=== PATIENT | male | born 1980 | race Caucasian/White ===

== ENCOUNTER 2022-06-29 10:46 | Outpatient (CLI) | payer BC, SELFPAY | END 2022-06-29 10:47 | disposition home or self-care (01) | LOC: AMB 06-30 11:29 | PROVIDERS: Visit Provider Family Medicine | DX: R07.89 Other chest pain (principal) | CPT/HCPCS: A0425; A0427 ==

== ENCOUNTER 2022-06-29 11:13 | Emergency (ER) | payer BC, SELFPAY ==
[2022-06-29] VITALS (32 sets, daily range): BP systolic 101–150; BP diastolic 68–110; PULSE 55–78; RESP 14; TEMP 36.3–36.4; O2SAT 94–98; BMI 31.5
--- NOTE | 2022-06-29 11:36 | CRLHL7_ITS ---
For Patients: As a result of the Century Cures Act, medical imaging exams and procedure reports are released immediately into your electronic medical record. You may view this report before your referring provider. If you have questions, please contact your health care provider. INDICATION: CHEST PAIN TECHNIQUE: Chest 2 views COMPARISON: None FINDINGS: Cardiovascular and mediastinum: Heart size and vasculature are normal in caliber and appearance. Lungs and pleural spaces: Lungs are clear. No sign of infiltrate or mass. No sign of pleural effusion. No pneumothorax. Bones and soft tissues: No significant findings. IMPRESSION: No acute findings. Dictated by Barry Card MD @ 06/29/2022 12:05:01 PM (Electronically Signed)
[2022-06-29] MEDS: 0.9 % SODIUM CHLORIDE 1000 ml 1,000 ML IV (12:03)
[2022-06-29] MEDS: ONDANSETRON 2 MG/ML inj 4 MG IVP (12:03)
[2022-06-29 12:27] LABS: Basophils Absolute Auto 0.04 K/uL (0.00-0.30); Basophils Percent Auto 0.7 % (0.0-3.0); Eosinophils Absolute Auto 0.15 K/uL (0.00-0.50); Eosinophils Percent Auto 2.4 % (0.0-7.0); Hematocrit 44.3 % (37.0-53.0); Hemoglobin* 15.8 gm/dL (13.5-17.5); Immature Granulocytes Abs Auto 0.02 K/uL (0.00-0.30); Immature Granulocytes Pct Auto 0.3 %; Lymphocytes Absolute Auto 1.69 K/uL (0.90-2.90); Lymphocytes Percent Auto 27.6 % (20-44); Mean Corpuscular HGB Conc 36 gm/dL (32-36); Mean Corpuscular Hemoglobin 32 pg (26-34); Mean Corpuscular Volume 91 fL (80-100); Monocytes Percent Auto 11.3 % (0.0-11.0); Neutrophils Absolute Auto 3.54 K/uL (1.7-7.0); Neutrophils Percent Auto 57.7 % (42.0-72.0); Platelet Count* 226 K/uL (140-440); RDW Coefficient of Variation % 11.7 % (11.5-15.5); Red Blood Count 4.88 m/uL (4.30-5.90); White Blood Count* 6.13 K/uL (4.50-11.00)
[2022-06-29 12:31] LABS: Slide Review Reflex No
[2022-06-29 12:35] LABS: Chloride* 107 mmol/L (96-114); Potassium* 3.7 mmol/L (3.6-5.1); Sodium* 137 mmol/L (135-149)
[2022-06-29 12:38] LABS: Blood Urea Nitrogen* 21 mg/dL (5-24); Calcium* 9.5 mg/dL (8.4-10.6); Carbon Dioxide* 21 mmol/L (20-32); Creatinine* 0.7 mg/dL (0.5-1.5); Est. Creatinine Clearance* 134.36; Estimated Glomerular Filt Rate 119 ml/min; Glucose* 112 mg/dL (60-115)
[2022-06-29 12:48] LABS: NT Pro B Type NatriureticPept* < 20 pg/mL
[2022-06-29 12:49] LABS: Prothrombin Time 12.7 Seconds
[2022-06-29 12:50] LABS: Partial Thromboplastin Time* 31 Seconds (23-33)
[2022-06-29 12:59] LABS: PCR FLU A Negative PCR FLU A (Negative); PCR FLU B Negative PCR FLU B (Negative); PCR RSV Negative PCR RSV (Negative)
[2022-06-29 13:02] LABS: SARS PCR* Negative SARS-CoV-2 (Negative)
[2022-06-29 13:30] LABS: D Dimer Quantitative* < 0.27 ug/ml (0.00-0.50)
[2022-06-29] MEDS: GI COCKTAIL (VISC LIDO/ANTACID) 30 ML PO (13:33)
--- NOTE | 2022-06-29 13:42 | ED_ITS ---
HPI - Chest Pain General Date Seen: 06/29/22 Chief Complaint: Chest Pain Stated Complaint: Chest pain Time Seen by Provider: 06/29/22 11:22 Source: patient, family and EMS Mode of arrival: ambulatory Limitations: no limitations History of Present Illness HPI narrative: This pleasant 42-year-old gentleman was at work, when he started to feel unwell, felt like does have a bowel movement then walked out to the parking lot, there he developed discomfort in his epigastrium this spread to his chest, felt like he was going to pass out, and called the ambulance service. On the way to the hospital they gave him aspirin, 2 nitroglycerines for his discomfort, he reports that his discomfort went away, he feels so much better at the present time, no previous history of chest pain myocardial issues but does have a history of hypertension. Family history of heart issues also in family members at the age of 40. 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 MD complaint: chest pain Onset (ago): minute(s) Prior episodes: No Onset: during rest Pain location: substernal and epigastric Pain radiation: abdomen Relieving factors: nitroglycerin Exacerbating factors: nothing Associated symptoms: nausea, vomiting and sense of impending doom Treatment prior to arrival: aspirin and nitroglycerin Risk Factors Coronary artery disease risk factors: hypertension and family history of CAD before age 50 Thoracic aortic dissection risk factors: none Related Data Home Medications Medication Instructions Recorded Confirmed alprazolam 0.5 mg tablet (Xanax) 0.5 mg PO TID PRN 06/29/22 06/29/22 metoprolol tartrate 100 mg tablet 50 mg PO DAILY 06/29/22 06/29/22 Allergies Allergy/AdvReac Type Severity Reaction Status Date / Time penicillin G Allergy Unknown Verified 06/29/22 11:29 strawberries Allergy Unknown Uncoded 06/29/22 11:29 Review of Systems Status of ROS Reports: 10 or more systems reviewed and unremarkable except as noted in History and below PFSH PFSH Social History Smoking Status: Current every day smoker What tobacco products do you use: cigarettes How often do you have a drink containing alcohol: 2-3 times a week How many standard drinks containing alcohol do you have on a typical day: 1 or 2 How often do you have six or more drinks on one occasion: Never AUDIT-C Alcohol total score: 3 Non-prescribed substance use: denies use Exam Narrative Exam Narrative: Patient is speaking normally, no problem with slurring words, oriented x3. Head eyes ears nose and throat exam show equal pupils, no scleral icterus, extraocular muscles are normal, no facial droop, speech is normal, trachea normal and midline. Thyroid normal midline palpable not enlarged. Chest shows symmetrical rise bilaterally, normal auscultation with no wheezes, no increased work of breathing, no overt bruising or lesions seen, no tenderness is noted on auscultation. Heart sounds normal with no S3-S4 no murmurs clicks or gallops. Abdomen shows no obvious masses or hepatosplenomegaly, no organomegaly, bowel sounds are normal in all quadrants. No tenderness is noted also in all quadran ts. Upper and lower extremities show normal power, normal range of motion, pulses are normal, sensations normal, fine motor movements are normal, pelvis is stable to rocking. Cervical spine shows normal range of motion, and palpably not tender. Thoracic spine shows normal range of motion, and palpably not tender, lumbar spine shows no tenderness to palpation percussion and is otherwise normal range of motion. Skin shows no rashes, petechiae or eccymosis. Const Vital Signs, click to edit/add: Vital Signs - 24 hr 06/29/22 11:19 06/29/22 11:18 06/29/22 11:20 Temperature 97.3 F L Pulse Rate 73 78 Pulse Rate [Pulse Oximeter] 70 Respiratory Rate 14 Blood Pressure 113/86 Blood Pressure [Left Upper Arm] 113/86 Pulse Oximetry 96 97 96 Oxygen Delivery Method Room Air 06/29/22 11:30 06/29/22 11:32 06/29/22 11:47 Temperature Pulse Rate 68 71 64 Pulse Rate [Pulse Oximeter] Respiratory Rate Blood Pressure 119/82 Blood Pressure [Left Upper Arm] Pulse Oximetry 97 97 97 Oxygen Delivery Method 06/29/22 12:00 06/29/22 12:02 06/29/22 12:15 Temperature Pulse Rate 64 60 66 Pulse Rate [Pulse Oximeter] Respiratory Rate Blood Pressure 101/69 Blood Pressure [Left Upper Arm] Pulse Oximetry 94 97 96 Oxygen Delivery Method 06/29/22 12:16 06/29/22 12:30 06/29/22 12:32 Temperature Pulse Rate 64 66 67 Pulse Rate [Pulse Oximeter] Respiratory Rate Blood Pressure 120/75 115/73 Blood Pressure [Left Upper Arm] Pulse Oximetry 96 95 97 Oxygen Delivery Method 06/29/22 12:33 06/29/22 12:46 06/29/22 12:47 Temperature Pulse Rate 64 60 66 Pulse Rate [Pulse Oximeter] Respiratory Rate Blood Pressure 113/68 Blood Pressure [Left Upper Arm] Pulse Oximetry 98 95 97 Oxygen Delivery Method 06/29/22 13:00 06/29/22 13:02 06/29/22 13:15 Temperature Pulse Rate 64 67 58 L Pulse Rate [Pulse Oximeter] Respiratory Rate Blood Pressure 122/73 Blood Pressure [Left Upper Arm] Pulse Oximetry 95 96 97 Oxygen Delivery Method 06/29/22 13:16 06/29/22 13:17 06/29/22 13:30 Temperature Pulse Rate 59 L 61 61 Pulse Rate [Pulse Oximeter] Respiratory Rate Blood Pressure 125/76 Blood Pressure [Left Upper Arm] Pulse Oximetry 96 96 96 Oxygen Delivery Method 06/29/22 13:45 06/29/22 13:47 06/29/22 14:00 Temperature Pulse Rate 58 L 60 56 L Pulse Rate [Pulse Oximeter] Respiratory Rate Blood Pressure 118/75 Blood Pressure [Left Upper Arm] Pulse Oximetry 96 98 95 Oxygen Delivery Method 06/29/22 14:01 06/29/22 14:15 06/29/22 14:17 Temperature Pulse Rate 55 L 60 57 L Pulse Rate [Pulse Oximeter] Respiratory Rate Blood Pressure 121/73 132/88 Blood Pressure [Left Upper Arm] Pulse Oximetry 97 96 98 Oxygen Delivery Method 06/29/22 14:30 06/29/22 14:31 06/29/22 14:32 Temperature Pulse Rate 60 57 L 61 Pulse Rate [Pulse Oximeter] Respiratory Rate Blood Pressure 150/87 H Blood Pressure [Left Upper Arm] Pulse Oximetry 95 94 97 Oxygen Delivery Method 06/29/22 14:47 06/29/22 14:57 Temperature 97.6 F Pulse Rate Pulse Rate [Pulse Oximeter] Respiratory Rate Blood Pressure 138/110 H Blood Pressure [Left Upper Arm] Pulse Oximetry Oxygen Delivery Method Course Course Hospital Course: Patient is seen and assessed, ultrasound is done of his heart, with the indication of chest discomfort, four views are obtained and saved in record, no pericardial effusion, overall good function is noted, with the EP SS being normal. Sliding signs seen bilaterally being normal, on the lung windows. Overall good function, negative point of care ultrasound. Reevaluation(s) Reevaluation #1: Repeated troponins were negative EKG was shows no acute changes, patient did not have any pain, the GI cocktail work very well. I think at this point we can discharge him home I would suggest outpatient stress echo, and then follow-up with primary care, he has a appointment made in the next few weeks with primary care, and wanted to get a stress echo through our institution which I do not think is unreasonable. I think starting on Prilosec would also be helpful, and return here if any further issues worsening pain shortness of breath or other issues. Vital Signs Vital signs: Initial Vital Signs Pulse Rate 73 06/29/22 11:18 Pulse Oximetry 97 06/29/22 11:18 Vital Signs Pulse Rate 73 06/29/22 11:18 Pulse Oximetry 97 06/29/22 11:18 Temperature 97.6 F 06/29/22 14:57 Pulse Rate 61 06/29/22 14:32 Respiratory Rate 14 06/29/22 11:19 Blood Pressure 138/110 H 06/29/22 14:47 Pulse Oximetry 97 06/29/22 14:32 Oxygen Delivery Method 06/29/22 11:19 MDM - Chest Pain MDM Narrative Medical decision making narrative: During the evaluation of this patient I considered multiple differential diag nosis is. The life-threatening differential diagnosis include coronary disease/IA, pulmonary embolism, pneumothorax, pneumonia, and aortic dissection. Other differential diagnosis included but were not limited to pericarditis, myocarditis, chest wall pain, GERD, esophageal rupture, rib fracture contusion, pleurisy, as well as other etiologies. Medical Records Data Attestation: I reviewed the patient's medical records. Lab Data Attestation: I reviewed the patient's lab results. Labs: Lab Results 06/29/22 06/29/22 06/29/22 Range/Units 11:37 11:50 11:50 WBC 6.13 (4.50-11.00) K/uL RBC 4.88 (4.30-5.90) m/uL Hgb 15.8 (13.5-17.5) gm/dL Hct 44.3 (37.0-53.0) % MCV 91 (80-100) fL MCH 32 (26-34) pg MCHC 36 (32-36) gm/dL RDW Coeff of Mirtha 11.7 (11.5-15.5) % Plt Count 226 (140-440) K/uL Neut % (Auto) 57.7 (42.0-72.0) % Lymph % (Auto) 27.6 (20-44) % [place] % (Auto) 11.3 H (0.0-11.0) % Eos % (Auto) 2.4 (0.0-7.0) % Baso % (Auto) 0.7 (0.0-3.0) % Neut # (Auto) 3.54 (1.7-7.0) K/uL Lymph # (Auto) 1.69 (0.90-2.90) K/uL [place] # (Auto) 0.70 (0.00-0.90) K/UL Eos # (Auto) 0.15 (0.00-0.50) K/uL Baso # (Auto) 0.04 (0.00-0.30) K/uL INR (0.91-1.10) APTT (23-33) Seconds D-Dimer Quant (PE/DVT) < 0.27 (0.00-0.50) ug/ml Sodium (135-149) mmol/L Potassium (3.6-5.1) mmol/L Chloride (96-114) mmol/L Carbon Dioxide (20-32) mmol/L BUN (5-24) mg/dL Creatinine (0.5-1.5) mg/dL Estimated Creat Clear Estimated GFR ml/min Glucose (60-115) mg/dL Calcium (8.4-10.6) mg/dL NT-Pro-B Natriuret Pep pg/mL SARS-CoV-2 (PCR) (Negative) Influenza Type A (PCR) (Negative) Influenza Type B (PCR) (Negative) RSV (PCR) (Negative) POC Troponin I 0.00 L (0.01-0.04) ng/ml 06/29/22 06/29/22 06/29/22 Range/Units 11:50 11:50 11:50 WBC (4.50-11.00) K/uL RBC (4.30-5.90) m/uL Hgb (13.5-17.5) gm/dL Hct (37.0-53.0) % MCV (80-100) fL MCH (26-34) pg MCHC (32-36) gm/dL RDW Coeff of Mirtha (11.5-15.5) % Plt Count (140-440) K/uL Neut % (Auto) (42.0-72.0) % Lymph % (Auto) (20-44) % [place] % (Auto) (0.0-11.0) % Eos % (Auto) (0.0-7.0) % Baso % (Auto) (0.0-3.0) % Neut # (Auto) (1.7-7.0) K/uL Lymph # (Auto) (0.90-2.90) K/uL [place] # (Auto) (0.00-0.90) K/UL Eos # (Auto) (0.00-0.50) K/uL Baso # (Auto) (0.00-0.30) K/uL INR 0.90 L (0.91-1.10) APTT 31 (23-33) Seconds D-Dimer Quant (PE/DVT) (0.00-0.50) ug/ml Sodium 137 (135-149) mmol/L Potassium 3.7 (3.6-5.1) mmol/L Chloride 107 (96-114) mmol/L Carbon Dioxide 21 (20-32) mmol/L BUN 21 (5-24) mg/dL Creatinine 0.7 (0.5-1.5) mg/dL Estimated Creat Clear 134.36 Estimated GFR 119 ml/min Glucose 112 (60-115) mg/dL Calcium 9.5 (8.4-10.6) mg/dL NT-Pro-B Natriuret Pep pg/mL SARS-CoV-2 (PCR) Negative SARS-CoV-2 (Negative) Influenza Type A (PCR) Negative PCR FLU A (Negative) Influenza Type B (PCR) Negative PCR FLU B (Negative) RSV (PCR) Negative PCR RSV (Negative) POC Troponin I (0.01-0.04) ng/ml 06/29/22 06/29/22 Range/Units 11:50 13:35 WBC (4.50-11.00) K/uL RBC (4.30-5.90) m/uL Hgb (13.5-17.5) gm/dL Hct (37.0-53.0) % MCV (80-100) fL MCH (26-34) pg MCHC (32-36) gm/dL RDW Coeff of Mirtha (11.5-15.5) % Plt Count (140-440) K/uL Neut % (Auto) (42.0-72.0) % Lymph % (Auto) (20-44) % [place] % (Auto) (0.0-11.0) % Eos % (Auto) (0.0-7.0) % Baso % (Auto) (0.0-3.0) % Neut # (Auto) (1.7-7.0) K/uL Lymph # (Auto) (0.90-2.90) K/uL [place] # (Auto) (0.00-0.90) K/UL Eos # (Auto) (0.00-0.50) K/uL Baso # (Auto) (0.00-0.30) K/uL INR (0.91-1.10) APTT (23-33) Seconds D-Dimer Quant (PE/DVT) (0.00-0.50) ug/ml Sodium (135-149) mmol/L Potassium (3.6-5.1) mmol/L Chloride (96-114) mmol/L Carbon Dioxide (20-32) mmol/L BUN (5-24) mg/dL Creatinine (0.5-1.5) mg/dL Estimated Creat Clear Estimated GFR ml/min Glucose (60-115) mg/dL Calcium (8.4-10.6) mg/dL NT-Pro-B Natriuret Pep < 20 pg/mL SARS-CoV-2 (PCR) (Negative) Influenza Type A (PCR) (Negative) Influenza Type B (PCR) (Negative) RSV (PCR) (Negative) POC Troponin I 0.00 L (0.01-0.04) ng/ml ECG Data ECG interpretation date: 06/29/22 Interpretation: EKGs show no acute changes, by my review. Discharge Plan Discharge Clinical Impression: Chest pain Patient Disposition: Home w/ Parent or Adult Condition: Stable Instructions: Chest Pain (DC) Additional Instructions: Home rest continue to monitor. Follow-up stress echo, for this issue. You will be called tomorrow 06/30/22 by our machine operator helper. Please call us if you don't hear from us at [phone]. I would also recommend Prilosec 20 mg a day. Prescription given but it might be cheaper to by this at either [facility] or [facility]. Recurrent chest pain shortness of breath or other symptoms please come back to be seen. Prescriptions: No Action metoprolol tartrate 100 mg tablet 50 mg PO DAILY alprazolam [Xanax] 0.5 mg tablet 0.5 mg PO TID PRN Follow Up/Referrals: Provider,Not a Local [Primary Care Provider] - Stand Alone Forms: [facility] Info Instructions
== END 2022-06-29 14:55 | disposition home or self-care (01) ==
PROVIDERS: Emergency Provider Family Medicine
DX: R07.9 Chest pain, unspecified (principal)
CPT/HCPCS: 36415; 71046; 80048; 83880; 84484; 85025; 85379; 85610; 85730; 87502; 87634; 87635; 93005; 96374; 99284; 99285; A9270; J2405; J7030